=== PATIENT | male | born 1960 | race Caucasian/White ===

== ENCOUNTER 2018-11-19 10:34 | Day surgery (SDC) | payer OTHER ==
--- NOTE | 2018-11-19 08:28 | HP ---
DATE OF SURGERY: 11/19/2018 HISTORY OF PRESENT ILLNESS: The patient is a 58 year-old gentleman with history of pain on the left over the past greater than a year or so suprapubic area. It was felt he had left inguinal hernia on exam. I felt he would benefit from repair. It was unclear whether he has slight weakness on the right versus just normal variation. Discussed options of open versus laparoscopic approach. He prefers repair and would like to try the laparoscopic approach if possible. PAST MEDICAL HISTORY: ADHD. He has had depression in the past. PAST SURGICAL HISTORY: He said he has not had any abdominal surgery before. He did have endoscopy in the past. MEDICATIONS: He has been on dextroamphetamine salts. He has been on Lexapro, Naprosyn. He has been on some Engerix B IM suspension as well as escitalopram. ALLERGIES: NKDA. FAMILY HISTORY: Breast cancer. Uterine cancer. Skin cancer. Diabetes. Parkinson's. Renal disease. SOCIAL HISTORY: No smoking or alcohol abuse. REVIEW OF SYSTEMS: Twelve systems reviewed per admission assessment. No chest pain or palpitations other systems negative or noncontributory as above and per preadmission questionnaire. PHYSICAL EXAMINATION: GENERAL: No acute distress. HEENT: Sclerae nonicteric. NECK: No JVD. CHEST: Equal excursion, nonlabored breathing. CVS: Regular rate and rhythm. ABDOMEN: Soft. He has a left inguinal hernia on exam. No large hernia on the right whether just a small occult one versus small variation is unclear at this point. EXTREMITIES: No significant edema. NEURO: Alert, oriented, moving extremities symmetrically. No gross motor deficits noted. IMPRESSION: Left inguinal hernia. I feel the patient is need of left inguinal hernia repair with mesh. Discussed laparoscopic versus open approach. He would like to try to proceed with laparoscopic if possible and proceed with laparoscopic left inguinal hernia repair with mesh possible open, possible bilateral hernia repair pending evaluation of the right inguinal area on laparoscopic view. Risks and benefits explained in detail but not limited to bleeding or infection, risk of trocar injury or hernia, small risk of bowel, bladder or blood vessel injury, small risk of adhesions, obstruction or ileus, remote risk of major bleeding, risk of mesh irritating the bladder possibly requiring removal, overall risk of hernia recurrence, small risk of vas or gonadal vessel issues, injury or thrombosis. General risk of aches, pains, burning, numbness lower abdomen, groin, thigh or scrotal area possibly chcf or chronic in nature and up to 10 to 12%, possible high risk of intermittent ache or twinge, risk if the mesh became infected likely would need to be removed. General risk of anesthesia, deep venous thrombosis, pulmonary embolism, pneumonia, overall risk of hernia recurrence as well as possibility should he appear to have significant right inguinal hernia present on laparoscopic view would go ahead and repair that side with mesh but if his right side looks okay will just proceed with left inguinal hernia repair at this setting. He also understands the possible need to convert to open procedure with similar risks including risk of ingrown hair or suture reaction, swelling and firmness on the incision, hematoma or seroma formation. He understands all the above but not limited to, will proceed with laparoscopic left inguinal hernia repair with mesh, possible open possible laparoscopic right inguinal hernia repair with mesh if indicated possible open.
[~2018-11-19 10:34] MED LIST: CEFAZOLIN 2 GM-D5W BAG** 2 GM/50 ML ML IV ONE; Lactated Ringers 1,000 ML IV ONE; Lactated Ringers 1,000 ML IV SCH
[2018-11-19] MEDS ORDERED: Naropin 0.5% 30 ML VIAL IJ ONE (10:35)
[2018-11-19] MEDS ORDERED: SUBLIMAZE 100 MCG/2 ML IV ONE (10:35)
[2018-11-19] MEDS ORDERED: TORAdol 30 mg Injection IV ONE (10:35)
[2018-11-19] MEDS ORDERED: Zofran 4 MG/2 ML VIAL IV ONE (10:35)
[2018-11-19] MEDS ORDERED: BRIDION 200MG/2ML IV ONE (10:35)
[2018-11-19] MEDS ORDERED: Decadron 4 MG INJ IV ONE (10:35)
[2018-11-19] MEDS ORDERED: Quelicin Fliptop 200 MG/10 ML IV ONE (10:35)
[2018-11-19] MEDS ORDERED: Zemuron 100 MG/10 ML IV ONE (10:35)
[2018-11-19] MEDS ORDERED: DIPRIVAN 200 MG/20 ML IV ONE (10:35)
[2018-11-19] MEDS ORDERED: Lactated Ringers 1,000 ML IV ONE ×2 (11:41→13:22)
[2018-11-19] MEDS ORDERED: Sensorcaine 0.25% 10 ML ONE (11:41)
[2018-11-19] MEDS ORDERED: Zofran 4 MG/2 ML VIAL ONE (14:46)
[2018-11-19] MEDS ORDERED: SUBLIMAZE 100 MCG/2 ML ONE (14:46)
--- NOTE | 2018-11-19 15:24 | OP ---
SURGERY DATE/TIME: 11/19/2018 1244 PREOPERATIVE DIAGNOSIS: Left inguinal hernia, left inguinal pain. POSTOPERATIVE DIAGNOSIS: Left inguinal hernia, left inguinal pain, including fairly extensive colon adhesions to left anterior lower abdominal wall requiring lysis of adhesions. PROCEDURES: 1) Laparoscopic lysis of adhesions. 2) Laparoscopic left inguinal hernia repair with mesh. SURGEON: Dr. Brandon Orozco. ANESTHESIA: General. ESTIMATED BLOOD LOSS: Minimal. INDICATIONS: As noted above. Risks and benefits explained in detail and not limited to and consent had been obtained. The site was marked in the preoperatively. DESCRIPTION OF PROCEDURE AND FINDINGS: The patient is taken to the operating room. General anesthesia induced. His abdomen prepped and draped in usual sterile fashion. After official time out and no disagreement with planned procedure, a transverse incision made supraumbilical area. Fascia grasped and pulled upward. Veress needle inserted and tested with saline. Pneumoperitoneum accomplished insufflating opening pressure 0- 15. An 11 mm bladeless port and camera were inserted without difficulty, followed by left mid abdomen 5 mm port, right mid abdomen 11 mm port. Later a 5 mm midline port was placed for added dissection, dissecting port. The patient had extensive colon adhesions up to the left mid to lower abdominal wall. This took quite some time. These are slowly and carefully taken down laparoscopically allowing access to the large hernia which had some incarceration of some of the epiploic and fat off of the colon. It was incarcerated down in this moderately large hernia. Once this was accomplished the peritoneum was carefully incised. Dissection carried in retro-rectus position down to the pubic bone and Germán's ligament area and staying directly on the peritoneum laterally keeping the fat pad against the lateral wall. Peritoneal flap was carefully taken down the transabdominal approach. This was taken down to the large hernia sac which took quite some time but slowly and carefully the small vasculature was carefully dissected off of it. It was dissected free from the vas and cord vessels, gonadal vessels slowly and carefully reduced back up in the abdomen. It had a little small, tiny hydrocele on the tip. Both testicles remained down in the scrotum. Once this was accomplished, the peritoneum was carefully mobilized up off the retroperitoneum anteriorly to allow for good placement of the mesh. Once all the direct femoral and indirect spaces had been cleared, it was felt he would benefit from mesh repair. 3D mesh available. As he had quite a large hernia it was felt to be safer to use the extra-large mesh for better coverage to reduce the overall risk of recurrence. It was carefully rolled, sutures placed at the crease over the iliac vessel area. It was carefully rolled and placed down 10/11 port, carefully positioned overlapping onto the Germán's ligament over towards the pubic bone medially. Two or three tacks positioned medially to avoid migration of the mesh. Had good position laterally covering the indirect space where the large hernia had been. One additional tack was in the anterior edge with the mesh, mid portion of the mesh to avoid torsion of the mesh. As the very far medial edge wanted to roll a little bit a capture tack was placed to insure that it remained flat. A picture had been taken of the mesh in nice good position with adequate overlap of indirect, direct and femoral spaces. Good hemostasis noted. As the peritoneum flap dissection had been kept high enough it completely covered the top edge of the mesh. It was felt there was no benefit of any suture of this peritoneum as it completely covered the top edge of the mesh. After closing 10/11 fascia defect with puncture closure device with #1 Vicryl. Pneumoperitoneum decompressed. The wound is irrigated out. Skin incision closed with 4-0 Vicryl. 0.25% Marcaine. Again the mesh lying nice and flat on decompression of pneumoperitoneum. Skin closed with 4-0 Vicryl. 0.25% Marcaine local had been injected along the skin incision back towards anterior iliac spine back towards the origin of the inguinal nerves laterally. The patient tolerated the procedure well. There were immediate complications. There was no family available to discuss the findings with out in the waiting area.
[2018-11-19 15:58] VITALS: O2SAT 96
[2018-11-19 16:43] VITALS: PULSE 72
[2018-11-19 16:45] VITALS: BP 121/70
[2018-11-19 21:38] LABS: Appearance CLEAR (CLEAR); Bilirubin NEGATIVE (NEGATIVE); Blood NEGATIVE Ery/ul (0-5); Glucose NEGATIVE (NEGATIVE); Hyaline Casts 0-2 /LPF (0-2); Ketones TRACE (NEGATIVE); Leukocyte Esterase NEGATIVE (NEGATIVE); Mucus SLIGHT /HPF (NEGATIVE); Nitrite NEGATIVE (NEGATIVE); Protein,Urine Dip NEGATIVE (Negative); Specific Gravity 1.014 (1.005-1.025); Urobilinogen NEGATIVE mg/dL (0-1)
== END 2018-11-19 16:47 | disposition home or self-care (01) ==
LOC: SDC 10:34
PROVIDERS: ATTEND Surgery
DX: K40.90 Unilateral inguinal hernia, without obstruction or gangrene, not specified as recurrent (principal); K66.0 Peritoneal adhesions (postprocedural) (postinfection); Z79.899 Other long term (current) drug therapy
CPT/HCPCS: 81001; 87086; J0330; J0690; J1100; J1885; J2405; J2704; J2795; J3010

== ENCOUNTER 2021-06-23 13:34 | Day surgery (SDC) | payer OTHER | END 2021-06-23 15:35 | disposition home or self-care (01) | LOC: SDC-PAIN 13:34 | PROVIDERS: ATTEND Psychiatry & Neurology Pain Medicine | DX: Z53.8 Procedure and treatment not carried out for other reasons (principal) ==

== ENCOUNTER 2021-08-25 09:20 | Day surgery (SDC) | payer OTHER ==
[2021-08-25] MEDS ORDERED: LIDOCAINE HCL 2% 100 MG/5 ML IJ ONE (09:21)
[2021-08-25] MEDS ORDERED: Depo-Medrol 40 MG/ML IM ONE (09:21)
[2021-08-25] MEDS ORDERED: Versed 2 MG/2 ML Injection ONE (10:09)
[2021-08-25] MEDS ORDERED: DIPRIVAN 200 MG/20 ML IV ONE (10:36)
[2021-08-25] MEDS ORDERED: Lactated Ringers 1,000 ML IV ONE (11:19)
--- NOTE | 2021-08-25 12:23 | XRAY ---
Indication: Bilateral L4-S1 MBB. Intraoperative fluoroscopy provided for 7 seconds. Single digital spot image submitted for interpretation demonstrates posterior needle tips projecting over the expected left and right L4-S1 nerve roots. Correlate with intraoperative findings/report.
--- NOTE | 2021-08-25 12:36 | XRAY ---
7 seconds fluoroscopy time in surgery for bilateral L4-S1 MBB.
== END 2021-08-25 11:25 | disposition home or self-care (01) ==
LOC: SDC-PAIN 09:20
PROVIDERS: ATTEND Psychiatry & Neurology Pain Medicine
DX: M47.816 Spondylosis without myelopathy or radiculopathy, lumbar region (principal); D64.9 Anemia, unspecified; Z79.899 Other long term (current) drug therapy
CPT/HCPCS: 64493; 64494; 72020; 77002; J1030; J2250; J2704

== ENCOUNTER 2021-11-03 12:04 | Day surgery (SDC) | payer OTHER ==
[2021-11-03] MEDS ORDERED: Lactated Ringers 1,000 ML IV ONE (13:49)
[2021-11-03] MEDS ORDERED: Depo-Medrol 40 MG/ML IM ONE (13:50)
[2021-11-03] MEDS ORDERED: BUPIVACAINE 0.5% VIAL IJ ONE (13:50)
[2021-11-03] MEDS ORDERED: DIPRIVAN 200 MG/20 ML IV ONE (14:37)
--- NOTE | 2021-11-03 15:13 | XRAY ---
Indication: Bilateral L4-S1 MBB. Intraoperative fluoroscopy provided for 10 seconds. Single digital spot image submitted for interpretation demonstrates posterior needle tips projecting over the expected left and right L4-S1 nerve roots. Correlate with intraoperative findings/report.
--- NOTE | 2021-11-03 15:24 | XRAY ---
10 seconds fluoroscopy time in surgery for bilateral L4-S1 MBB.
== END 2021-11-03 15:00 | disposition home or self-care (01) ==
LOC: SDC-PAIN 12:04
PROVIDERS: ATTEND Psychiatry & Neurology Pain Medicine
DX: M47.816 Spondylosis without myelopathy or radiculopathy, lumbar region (principal); Z79.899 Other long term (current) drug therapy
CPT/HCPCS: 64493; 64494; 72020; 77002; J1030; J2704

== ENCOUNTER 2021-12-16 10:57 | Day surgery (SDC) | payer OTHER ==
[2021-12-16] MEDS ORDERED: Depo-Medrol 40 MG/ML IM ONE (10:58)
[2021-12-16] MEDS ORDERED: BUPIVACAINE 0.5% VIAL IJ ONE (10:58)
[2021-12-16] MEDS ORDERED: Xylocaine 1% Vial 30 ML PF IJ ONE (10:58)
[2021-12-16] MEDS ORDERED: DIPRIVAN 200 MG/20 ML IV ONE (13:11)
[2021-12-16] MEDS ORDERED: Lactated Ringers 1,000 ML IV ONE (14:05)
--- NOTE | 2021-12-16 15:14 | XRAY ---
Indication: Right L4-S1 RFA. Intraoperative fluoroscopy provided for 16 seconds. 3 digital spot images submitted for interpretation demonstrates posterior needle tips projecting over the expected right L4-S1 nerve roots. Correlate with intraoperative findings/report.
--- NOTE | 2021-12-16 15:21 | XRAY ---
16 seconds fluoroscopy time in surgery for right L4-S1 RFA.
== END 2021-12-16 13:39 | disposition home or self-care (01) ==
LOC: SDC-PAIN 10:57
PROVIDERS: ATTEND Psychiatry & Neurology Pain Medicine
DX: M47.816 Spondylosis without myelopathy or radiculopathy, lumbar region (principal); Z79.899 Other long term (current) drug therapy
CPT/HCPCS: 64635; 64636; 72100; 77002; J1030; J2001; J2704

== ENCOUNTER → 2021-12-29 | Day surgery (SDC) | payer OTHER ==
[~2021-12-29] MED LIST changes: +BUPIVACAINE 0.5% VIAL IJ ONE; -CEFAZOLIN 2 GM-D5W BAG** 2 GM/50 ML ML IV ONE; +DIPRIVAN 200 MG/20 ML IV ONE; +Depo-Medrol 40 MG/ML IM ONE; -Lactated Ringers 1,000 ML IV SCH; +ROBINUL IV ONE; +Xylocaine 1% Vial 30 ML PF IJ ONE
--- NOTE | 2021-12-29 15:15 | XRAY ---
Indication: Left L4-S1 RFA Intraoperative fluoroscopy provided for 25 seconds. 3 digital spot images submitted for interpretation demonstrates posterior needle tips projecting over the expected left L4-S1 nerve roots. Correlate with intraoperative findings/report.
--- NOTE | 2021-12-29 16:47 | XRAY ---
25 seconds of fluoroscopy was used in surgery for a left L4-S1 RFA.
== END ==
LOC: SDC-PAIN 10:44
PROVIDERS: ATTEND Psychiatry & Neurology Pain Medicine
DX: M47.816 Spondylosis without myelopathy or radiculopathy, lumbar region (principal); Z79.899 Other long term (current) drug therapy
CPT/HCPCS: 64635; 64636; 72100; 77002; J1030; J2001; J2704